=== PATIENT | male | born 1940 | race Two or more races ===

== ENCOUNTER 2017-06-28 11:01 | Inpatient (IN) | payer MEDICARE ==
[~2017-06-28] VITALS: Ht 182.9 cm; Wt 59.0 kg
[2017-06-28 14:37] LABS: BASOPHILS % (AUTO) 0.6 % (0.0-2.0); EOSINOPHILS % (AUTO) 1.8 % (0.0-3.0); HEMATOCRIT 37.9 % (42.0-52.0); HEMOGLOBIN 12.1 G/DL (14.2-18.0); LYMPHOCYTES % (AUTO) 8.7 % (20.0-45.0); MEAN CORPUSCULAR VOLUME 89 FL (80-99); MONOCYTES % (AUTO) 6.7 % (1.0-10.0); NEUTROPHILS % (AUTO) 82.3 % (45.0-75.0); PLATELET COUNT 278 K/UL (150-450); RED BLOOD COUNT 4.28 M/UL (4.70-6.10); RED CELL DISTRIBUTION WIDTH 12.7 % (11.6-14.8); WHITE BLOOD COUNT 8.7 K/UL (4.8-10.8)
[2017-06-28 15:07] LABS: ALANINE AMINOTRANSFERASE 25 U/L (12-78); ALBUMIN 2.4 G/DL (3.4-5.0); ALBUMIN/GLOBULIN RATIO 0.6 (1.0-2.7); ALKALINE PHOSPHATASE 69 U/L (46-116); ANION GAP 8 mmol/L (5-15); ASPARTATE AMINO TRANSFERASE 16 U/L (15-37); BILIRUBIN,TOTAL 0.4 MG/DL (0.2-1.0); BLOOD UREA NITROGEN 45 mg/dL (7-18); CARBON DIOXIDE 28 MMOL/L (21-32); CHLORIDE 108 MMOL/L (98-107); CREATININE 1.5 MG/DL (0.55-1.30); POTASSIUM 4.4 MMOL/L (3.5-5.1); SODIUM 144 MMOL/L (136-145)
[2017-06-28 18:36] VITALS: BP 124/86
[2017-06-28] MEDS: Heparin 5000 units/ml inj SUBQ SCH (21:00)
[2017-06-28 21:42] LABS: APPEARANCE,URINE CLEAR; BILIRUBIN, URINE 1+ (NEGATIVE); COLOR,URINE YELLOW; GLUCOSE, URINE (UA) NEGATIVE (NEGATIVE); KETONES,URINE NEGATIVE (NEGATIVE); LEUKOCYTE ESTERASE ,URINE 1+ (NEGATIVE); NITRITE,URINE NEGATIVE (NEGATIVE); PH,URINE 5 (4.5-8.0); PROTEIN,URINE 3+ (NEGATIVE); UROBILINOGEN,URINE 1 MG/DL (0.0-1.0)
[2017-06-29] VITALS (15 sets, daily range): BP systolic 68–148; BP diastolic 34–99
[2017-06-29] MEDS: Heparin 5000 units/ml inj SUBQ SCH (09:36)
--- NOTE | 2017-06-29 10:33 | Diagnostic Imaging Report ---
Indication: Cough Comparison: None A single view chest radiograph was obtained. Findings: Ill-defined basilar infiltrates are demonstrated bilaterally. Heart size is normal. Pulmonary vascularity is within normal limits. No definite pleural effusions are identified. No pneumothorax identified. Bones are osteopenic. IMPRESSION: Bilateral lower lobe infiltrates. Consider aspiration.
[2017-06-29] MEDS ORDERED: Sodium Bicarbonate 50ml Carp ONE (10:54)
[2017-06-29] MEDS ORDERED: Sodium Bicarbonate 50ml Carp IV ONE (11:00)
[2017-06-29 11:28] LABS: HEMATOCRIT 38.7 % (42.0-52.0); HEMOGLOBIN 12.4 G/DL (14.2-18.0); MEAN CORPUSCULAR VOLUME 89 FL (80-99); PLATELET COUNT 282 K/UL (150-450); RED BLOOD COUNT 4.36 M/UL (4.70-6.10); RED CELL DISTRIBUTION WIDTH 12.6 % (11.6-14.8); WHITE BLOOD COUNT 8.8 K/UL (4.8-10.8)
[2017-06-29] MEDS ORDERED: Ipratropium 0.02% Inh Soln 2.5ml UD HHN PRN ×2 (11:30→14:30)
[2017-06-29 11:43] LABS: INR 1.2 (0.9-1.1)
[2017-06-29] MEDS ORDERED: Succinylcholine 20mg/ml 10ml vial IV ONE (11:45)
[2017-06-29] MEDS ORDERED: Etomidate 40mg/20ml Inj IV SCH (11:45)
[2017-06-29 11:50] LABS: ANION GAP 25 mmol/L (5-15); BLOOD UREA NITROGEN 65 mg/dL (7-18); CALCIUM 7.9 MG/DL (8.5-10.1); CARBON DIOXIDE 17 MMOL/L (21-32); CHLORIDE 106 MMOL/L (98-107); CREATININE 3.8 MG/DL (0.55-1.30); POTASSIUM 3.9 MMOL/L (3.5-5.1); SODIUM 148 MMOL/L (136-145)
[2017-06-29] MEDS ORDERED: Piperacillin/Tazobactam 3.375 GM in NS 110 ML IVPB SCH ×3 (12:00→15:00)
--- NOTE | 2017-06-29 12:14 | General Progress Note ---
Progress Note Progress Note Full consult to follow. Called to see patient who is septic. Was here with who is currently admitted. Has had diarrhea for a few days now. labs abnormal. possible ischemic colitis? when seen in ICU patient hypotensive, tachycardic, tachypnic and not doing well. very concerning. he is mentating okay but states he is tired. he is on bipap and though saturations okay he is using accessory muscles and progressing. -urgent central venous catheter inserted at bedside for fluids, meds, pressors. -urgent intubation performed at beside -ng tube placed and noted coffee ground residual. -recommend GI consult to evaluate for gi bleed -resuscitation with fluids, -wean pressors -wean vent when ready. abg in 1hr -Eugenio Livingston June 29, 2017 12:14
--- NOTE | 2017-06-29 12:51 | Diagnostic Imaging Report ---
Indication: Tube placement Comparison: Earlier today A single view chest radiograph was obtained. Findings: Endotracheal tube is 3 cm above the luciano in good position. Left subclavian line tip is at the junction of SVC and right atrium in good position. There is no pneumothorax. Nasogastric tube proximal port visualized within the stomach lumen. The tip is below the [id number] somewhere in the stomach. Basilar infiltrates again noted. Heart size is stable and normal. IMPRESSION: Tubes and lines satisfactory. No pneumothorax. Basilar infiltrates
[2017-06-29] MEDS ORDERED: Sodium Bicarbonate 100 ML in D5W 1000ml 1,000 ML IV SCH ×5 (13:00→15:00)
[2017-06-29] MEDS ORDERED: Vancomycin 1 GM in D5W 275 ML IVPB ONE (14:00)
[2017-06-29] MEDS ORDERED: Vancomycin 1gm/D5W 275ml IVPB ONE ×2 (14:00)
--- NOTE | 2017-06-29 14:29 | Diagnostic Imaging Report ---
Indication: NG tube placement Comparison: None Single view of the abdomen obtained Findings: NG tube is projected over the left mid abdomen. This is well situated in the stomach. Some distended small and large bowel noted. Osteoporosis demonstrated. Calcification of the iliac arteries and aorta noted. IMPRESSION: NG tube in good position
[2017-06-29 16:00] LABS: HEMATOCRIT 34.9 % (42.0-52.0); HEMOGLOBIN 11.3 G/DL (14.2-18.0); MEAN CORPUSCULAR VOLUME 87 FL (80-99); PLATELET COUNT 214 K/UL (150-450); RED BLOOD COUNT 3.99 M/UL (4.70-6.10); RED CELL DISTRIBUTION WIDTH 12.4 % (11.6-14.8); WHITE BLOOD COUNT 10.3 K/UL (4.8-10.8)
[2017-06-29] MEDS ORDERED: Azithromycin 500mg in D5W 275 ML IV SCH (16:00)
[2017-06-29 16:01] LABS: LYMPHOCYTES % (AUTO) 3.3 % (20.0-45.0); MONOCYTES % (AUTO) 3.5 % (1.0-10.0); NEUTROPHILS % (AUTO) 92.1 % (45.0-75.0)
[2017-06-29] MEDS ORDERED: NovoLOG Insulin Flexpen SUBQ SCH (16:30)
[2017-06-29 17:04] LABS: ANION GAP 17 mmol/L (5-15); BLOOD UREA NITROGEN 69 mg/dL (7-18); CALCIUM 6.9 MG/DL (8.5-10.1); CARBON DIOXIDE 23 MMOL/L (21-32); CHLORIDE 103 MMOL/L (98-107); CREATINE KINASE 3261 U/L (26-308); POTASSIUM 3.9 MMOL/L (3.5-5.1); SODIUM 143 MMOL/L (136-145)
--- NOTE | 2017-06-29 17:17 | Diagnostic Imaging Report ---
EXAM: US Abdomen Complete CLINICAL HISTORY: Abdominal pain. TECHNIQUE: Real-time ultrasound of the abdomen (complete) with image documentation. COMPARISON: No relevant prior studies available. FINDINGS: Liver: Unremarkable as visualized. Gallbladder: Gallbladder sludge. No definite shadowing cholelithiasis. Common bile duct: Obscured. Pancreas: Obscured. Kidneys: No hydronephrosis. Right kidney 9.1 cm. Left kidney 10.4 cm. Spleen: Unremarkable as visualized. Aorta: Obscured. Inferior vena cava: Unremarkable as visualized. Free fluid: Small ascites. IMPRESSION: 1. No hydronephrosis. 2. Gallbladder sludge. No definite shadowing cholelithiasis. 3. Small ascites.
--- NOTE | 2017-06-29 18:16 | Diagnostic Imaging Report ---
EXAM: XR Abdomen, 2 Views CLINICAL HISTORY: SOB TECHNIQUE: Frontal view of the abdomen/pelvis with upright view of the abdomen. COMPARISON: No relevant prior studies available. FINDINGS: Intraperitoneal space: Possible pneumoperitoneum, versus artifact. Gastrointestinal tract: Prominent small bowel concerning for SBO. Possible small bowel pneumatosis, cannot exclude bowel ischemia. Bones/joints: Unremarkable. Tubes, lines and devices: NG tube in the stomach. IMPRESSION: 1. Prominent small bowel concerning for SBO. Possible small bowel pneumatosis, cannot exclude bowel ischemia. 2. Possible pneumoperitoneum, versus artifact. 3. NG tube in the stomach. [employer] 06/29/17 18:19 Verify Receipt Verified receipt with Ani in ICU on 06/29 18:18 (-07:00)
--- NOTE | 2017-06-29 18:53 | Pulmonolgy Critical Care Note ---
Critical Care - Asmt/Plan Assessment/Plan: Pulmonary Consultation Consulted on patient noted to have worsening metabolic acidosis, felt to be septic from either a Pulmonary or GI source, patient hypotensive, in Respiratory Distress, ABG revealed PH 7. Patient had apparently had diarrhea for a few days felt to possibly ischemic colitis, patient previously on BiPAP. Urgent intubation performed at beside, central line placed, ng tube placed, Ly catheter placed, coffee ground residual noted on NGT Placed on AC 24, 650, P5, adjust sats 92-98 PE: Sedated on the Ventilator, ill appearing HEENT: NCAT, dry mm Chest: CTAB Heart: HS1, HS2 RRR Abdomen: Mildly distended, soft Extremities: Reduced perfusion, no edema, reduced skin turgor HOUSE FELLOW: Sedated, no focal signs Investigations: Labs noted CXR: Bibasal infiltrates, ETT/NGT/Line well positioned EKG: ST Impression: Possible Pneumomia Possible small bowel obstruction vs ischemic colitis Upper GI bleed Metabolic acidosis with inadequate Pulmonary compensation prior to intubation Plan: Patient intubated Fentanyl gtt RASS -2 AC 26, Vt 650, P5, titrate FIO2 Repeat ABG IV Zosyn, Vanco, Doxycycline Atrovent treatments DVT prophyllaxis IV Protonix IV fluids/HCO3 per renal Time of note does not reflect time patient seen ICU time 75 minutes, 42 minutes care co-ordination Case d/w RN/PMD Surgery following Respiratory: adjust tidal volume, monitor respiratory rate, adjust FIO2, CXR, ABG Critical Care - Objective Last 24 Hour Vital Signs Date Time Temp Pulse Resp B/P (MAP) Pulse Ox O2 Delivery O2 Flow Rate FiO2 06/29/17 17:18 100 06/29/17 17:10 133 33 50 06/29/17 17:00 105 24 148/90 99 Mechanical Ventilator 50 06/29/17 16:30 126 24 140/90 99 Mechanical Ventilator 50 06/29/17 16:25 92/46 06/29/17 16:00 98.8 129 32 136/99 99 Mechanical Ventilator 50 98.8 06/29/17 15:30 130 32 102/72 99 Mechanical Ventilator 50 06/29/17 15:00 133 31 115/80 99 Mechanical Ventilator 50 06/29/17 14:40 131 31 50 06/29/17 14:30 131 31 110/95 99 Mechanical Ventilator 50 06/29/17 14:05 32 5/11/18 14:00 130 31 114/98 99 Mechanical Ventilator 100 06/29/17 14:00 100 06/29/17 13:30 133 31 83/40 99 Mechanical Ventilator 100 06/29/17 13:10 131 32 100 06/29/17 13:00 129 32 86/68 99 Mechanical Ventilator 100 06/29/17 12:30 129 32 86/68 99 Mechanical Ventilator 100 06/29/17 12:22 68/34 06/29/17 12:00 100 06/29/17 12:00 118 25 68/34 99 Mechanical Ventilator 100 06/29/17 12:00 116 30 100 06/29/17 11:00 100 06/29/17 11:00 97.8 137 39 128/97 85 Bi-pap 100 97.8 06/29/17 08:00 98.1 101 20 110/72 95 Room Air 98.1 06/29/17 04:00 97.9 113 20 97/52 95 Room Air 97.9 06/29/17 00:00 98.0 118 20 119/63 96 98.0 06/28/17 18:36 97.3 98 18 124/86 98 Room Air 97.3 Accucheck: 108 Critical Care - Subjective ROS Limited/Unobtainable: Yes Condition: critical IV Access: central EKG Rhythm: Sinus Rhythm FI02: 100 Vent Support Breath Rate: 24 Vent Support Mode: AC Vent Tidal Volume: 650 Sputum Amount: Small PEEP: 5.0 PIP: 23 I&O: Intake and Output 06/28/17 06/29/17 19:00 07:00 Intake Total 160 ml 675 ml Balance 160 ml 675 ml Intake Oral 160 ml IV Total 675 ml # Voids 3 4 # Bowel Movements 3 ET-Tube: 7.5 ET Position: 22 Vik Cheng M.D. June 29, 2017 18:53
[2017-06-29] MEDS ORDERED: Tubing IV Secondary IV ONE (19:23)
--- NOTE | 2017-06-29 20:01 | History and Physical Report ---
DATE OF ADMISSION: 06/28/2017 CHIEF COMPLAINT: Diarrhea. HISTORY OF PRESENT ILLNESS: The patient is a 77-year-old male. He has no past medical history. He has been here at the hospital with his , who is admitted with cellulitis. He has been having poor p.o. intake for the last three days as well as multiple episodes of diarrhea. According to the patient and the patient's , he has no past medical history although he does note a 20 to 30-pound weight loss over the last several years. There are no reports of any fevers or chills. No chest pain. No shortness of breath. PAST MEDICAL HISTORY: None. PAST SURGICAL HISTORY: None. CURRENT MEDICATIONS: None. FAMILY HISTORY: None. SOCIAL HISTORY: Negative for alcohol or drugs. REVIEW OF SYSTEMS: GENERAL: No fever or chills. HEENT: No headaches or visual changes. CARDIOPULMONARY: No chest pain or shortness of breath. GASTROINTESTINAL: Positive abdominal pain. Positive diarrhea. No nausea. No vomiting. No melena. No bright red blood per rectum. No hematemesis. GENITOURINARY: No urgency or frequency. MUSCULOSKELETAL: No joint pain or swelling. NEUROLOGIC: No evidence of seizures. PHYSICAL EXAMINATION: VITAL SIGNS: Temperature 98 degrees, blood pressure 124/86, pulse 72, and respirations 20. GENERAL: The patient is well developed and in no apparent distress. He is thin and frail. NECK: Supple. HEART: Regular rate and rhythm. LUNGS: Clear. ABDOMEN: Soft, nontender, and nondistended. EXTREMITIES: Without clubbing, cyanosis, or edema. LABORATORY AND DIAGNOSTIC DATA: Laboratories are pending. ASSESSMENT: This is a pleasant male, who is admitted with complaints of diarrhea. He has been in the hospital. I am concerned about possible Clostridium difficile infection. 1. Diarrhea. 2. Dehydration. 3. Azotemia. 4. Failure to thrive and weight loss. PLAN: 1. Follow up C. difficile. 2. IV hydration. 3. Further plan of care will be determined at the review of pending laboratories. We will obtain a GI and Infectious Disease consultations also. Zeke Fierro M.D. DR: BURT JOB#: [id number] CC:
[2017-06-29] MEDS ORDERED: Heparin 5000 units/ml inj SUBQ SCH (21:00)
[2017-06-29] MEDS ORDERED: Doxycycline Hyclate 100 MG in D5W 110 ML IV SCH (21:00)
[2017-06-29] MEDS ORDERED: Doxycycline Hyclate 100 MG in D5W 110 ML IVPB SCH (21:00)
--- NOTE | 2017-06-29 21:01 | Consultation ---
DATE OF CONSULTATION: 06/29/2017 INFECTIOUS DISEASES CONSULTATION CONSULTING PHYSICIAN: July Elder M.D. REFERRING PHYSICIAN: Zeke Fierro M.D. REASON FOR CONSULTATION: Shock. HISTORY OF PRESENTING ILLNESS: This is a 77-year-old gentleman with unknown past medical history, who presents with diarrhea. He started having respiratory distress and was then transferred to the ICU. There is a concern for pneumonia and an Infectious Diseases consultation has been obtained for antibiotics. PAST MEDICAL HISTORY: Unknown. MEDICATIONS: As an inpatient, he was on subcutaneous heparin. He has been started on norepinephrine and sodium bicarbonate. ALLERGIES: No known drug allergies. SOCIAL HISTORY: Unknown. FAMILY HISTORY: Unknown. REVIEW OF SYSTEMS: Unable to obtain currently. PHYSICAL EXAMINATION: VITAL SIGNS: Temperature of 98.1, T-max of 98.1, pulse of 101, respiratory rate 20, blood pressure 110/72, and O2 saturation of 95%. HEENT: Pupils equally reactive to light and accommodation. Mouth appears clean without thrush. NECK: Supple. No adenopathy. No JVD. CARDIOVASCULAR: Regular rate and rhythm. No murmurs. LUNGS: Clear to auscultation bilaterally. No crackles. No wheezes. ABDOMEN: Soft and nontender. No organomegaly. EXTREMITIES: No cyanosis, no clubbing, and no edema. LABORATORY DATA: White count 8.7, hemoglobin 12.1, hematocrit 37.9, MCV 89, and platelet count of 278,000 with neutrophils of 82%. Sodium 144, potassium 4.4, chloride 108, bicarb 28, BUN 45, creatinine 1.5, and glucose 126. Calcium 8. Total bilirubin 0.4. AST 16, ALT 25, and alkaline phosphatase 69. Total protein 6.1. Albumin 2.4. UA is showing 2 to 4 white cells. Chest x-ray is showing bilateral lower lobe infiltrate. ASSESSMENT: This is a 77-year-old gentleman with unknown past medical history, who came in with diarrhea and now possibly has, 1. Aspiration pneumonia. 2. Respiratory failure. PLAN: 1. We will start the patient on vancomycin, Zosyn, and Flagyl. 2. We will order blood cultures, urine cultures, sputum cultures, stool for C. difficile, and stool cultures. 3. We will follow up cultures and adjust antibiotics accordingly. I would like to thank, Dr. Fierro, for this consultation. July Elder M.D. DR: ELSA JOB#: [id number] CC: Zeke Fierro M.D.
--- NOTE | 2017-06-29 22:52 | Operative Note - PDOC ---
Operative Note Operative Note Date of Operation/Procedure: June 29, 2017 Pre-op Diagnosis: septic shock Procedure: 1. emergency intubation 2. left subclavian central venous catheter insertion 3. Orogastric tube insertion Post-op Diagnosis: same as pre-op Surgeon: jose Anesthesia: other - local for line placement; RSI for intubation Specimen: none Complications: none Condition: unstable Estimated Blood Loss: minimal Drains: none Implant(s) used?: Yes - triple lumen catheter, ng tube, 7.5f ET tube Indications for Procedure 77M with recent history of diarrhea for a few days was visiting his when noted to be feeling unwell. Was admitted to ICU and progressing into shock. hypotensive, tachycardic, elevated trop, respiratory distress, acidosis. Emergency intubation recommended as well as central venous catheter insertion. Description of Procedure Patient made comfortable at bedside. When seen he is mentating well despite being hypotensive and tachycardic in progressive respiratory distress. patient stated he was tired and discussed intubation and line placement with him. left chest wall was prepped and draped in standard surgical fashion. anatomic landmarks were identified. local was infiltrated. finder needle used to cannulate left subclavian vein on second pass. guide wire placed over needle and needle removed. small skin incision made around wire. dilator used. triple lumen central venous catheter placed over wire and wire discarded once removed. all three ports flushed and aspirated without difficulty. line sutured in place and dressings applied. following this, once good venous line was available, patient was given IV fluids and made ready for emergent intubation. 10 etomidate and 50 succinylcholine was given while patient was being preoxygenaged. oropharynx was suctioned and 4 mac blade was used to visualize vocal cords for ET tube insertion. 7.5f tube inserted without complication. good capnography color change noted. bilateral breath sounds noted with good chest rise. following this an og tube was inserted. Eugenio Barrios June 29, 2017 22:51
--- NOTE | 2017-06-29 23:05 | Consultation ---
History of Present Illness General Date patient seen: June 29, 2017 Time patient seen: 11:45 Reason for Consultation: septic shock Present Illness HPI 77M currently visiting his who is hospitalized was noted to be feeling ill and deteriorating over the past few days while visiting his . Stated that he has been having diarrhea for a few days and not doing well. was advised to be evaluated and was noted to be hypotensive and tachycardic. Admitted to ICU for care and management. initial labs noted and concerning. Surgery called to evaluate. Patient was seen at bedside in ICU where he was in moderate distress but still mentating appropriately. stated that he has been having diarrhea and feeling well. diarrhea stated to be dark loose stools. no gross blood as he noted. no clots that he noted. denies nausea or emesis. denies pain. states he is very tired and feels weak. he is noted to be using accessory muscles for respirations. Allergies: Coded Allergies: No Known Allergies (Unverified , 06/28/17) Patient History Limited by: medical condition History Provided By: Patient, Medical Record, PMD Healthcare decision maker N Resuscitation status Full Code Advanced Directive on File No Past Medical/Surgical History Past Medical/Surgical History: (1) Septic shock (2) Diarrhea Review of Systems Constitutional: Reports: malaise, weakness Gastrointestinal: Reports: diarrhea All Other Systems: negative except mentioned in HPI Physical Exam General Appearance: moderate distress, thin Lines, tubes and drains: peripheral HEENT: atraumatic, anicteric Neck: supple Respiratory/Chest: decreased breath sounds, accessory muscle use Cardiovascular/Chest: tachycardia, other - difficult to palpate peripheral pulses Abdomen: non tender, soft, no organomegaly, no mass Extremities: slow capillary refill Skin Exam: no diaphoresis Neurologic: alert, responsive Last 24 Hour Vital Signs Date Time Temp Pulse Resp B/P (MAP) Pulse Ox O2 Delivery O2 Flow Rate FiO2 06/29/17 17:18 100 06/29/17 17:10 133 33 50 06/29/17 17:00 28 06/29/17 17:00 148/90 06/29/17 17:00 105 24 148/90 99 Mechanical Ventilator 50 06/29/17 16:30 126 24 140/90 99 Mechanical Ventilator 50 06/29/17 16:25 92/46 06/29/17 16:00 98.8 129 32 136/99 99 Mechanical Ventilator 50 98.8 06/29/17 16:00 31 06/29/17 15:30 130 32 102/72 99 Mechanical Ventilator 50 06/29/17 15:00 133 31 115/80 99 Mechanical Ventilator 50 06/29/17 15:00 30 06/29/17 14:40 131 31 50 06/29/17 14:30 131 31 110/95 99 Mechanical Ventilator 50 06/29/17 14:05 32 06/29/17 14:00 130 31 114/98 99 Mechanical Ventilator 100 06/29/17 14:00 100 06/29/17 13:30 133 31 83/40 99 Mechanical Ventilator 100 06/29/17 13:10 131 32 100 06/29/17 13:00 129 32 86/68 99 Mechanical Ventilator 100 06/29/17 12:30 129 32 86/68 99 Mechanical Ventilator 100 06/29/17 12:22 68/34 06/29/17 12:00 100 06/29/17 12:00 118 25 68/34 99 Mechanical Ventilator 100 06/29/17 12:00 116 30 100 06/29/17 11:00 100 06/29/17 11:00 97.8 137 39 128/97 85 Bi-pap 100 97.8 06/29/17 08:00 98.1 101 20 110/72 95 Room Air 98.1 06/29/17 04:00 97.9 113 20 97/52 95 Room Air 97.9 06/29/17 00:00 98.0 118 20 119/63 96 98.0 Intake and Output 06/28/17 06/29/17 19:00 07:00 Intake Total 160 ml 675 ml Balance 160 ml 675 ml Intake Oral 160 ml IV Total 675 ml # Voids 3 4 # Bowel Movements 3 Laboratory Tests Test 06/29/17 10:10 06/29/17 10:30 06/29/17 11:11 06/29/17 11:30 Arterial Blood pH 7.006 (7.350-7.450) 7.190 (7.350-7.450) 7.393 (7.350-7.450) Arterial Blood Partial Pressure CO2 47.9 mmHg (35.0-45.0) H 17.0 mmHg (35.0-45.0) *L 18.0 mmHg (35.0-45.0) *L Arterial Blood Partial Pressure O2 32.4 mmHg (75.0-100.0) 143.5 mmHg (75.0-100.0) H 0.0 mmHg (75.0-100.0) Arterial Blood HCO3 11.7 mmol/L (22.0-26.0) L 6.3 mmol/L (22.0-26.0) L 10.7 mmol/L (22.0-26.0) L Arterial Blood Oxygen Saturation 35.5 % (92.0-98.0) L 97.0 % (92.0-98.0) 98.4 % (92.0-98.0) H Arterial Blood Base Excess -19.4 -19.5 -11.6 Severiano Test Positive Positive Positive White Blood Count 8.8 K/UL (4.8-10.8) Red Blood Count 4.36 M/UL (4.70-6.10) L Hemoglobin 12.4 G/DL (14.2-18.0) L Hematocrit 38.7 % (42.0-52.0) L Mean Corpuscular Volume 89 FL (80-99) Mean Corpuscular Hemoglobin 28.3 PG (27.0-31.0) Mean Corpuscular Hemoglobin Concent 31.9 G/DL (32.0-36.0) L Red Cell Distribution Width 12.6 % (11.6-14.8) Platelet Count 282 K/UL (150-450) Mean Platelet Volume 6.8 FL (6.5-10.1) Neutrophils (%) (Auto) % (45.0-75.0) Lymphocytes (%) (Auto) % (20.0-45.0) Monocytes (%) (Auto) % (1.0-10.0) Eosinophils (%) (Auto) % (0.0-3.0) Basophils (%) (Auto) % (0.0-2.0) Differential Total Cells Counted 100 Neutrophils % (Manual) 56 % (45-75) Lymphocytes % (Manual) 16 % (20-45) L Monocytes % (Manual) 7 % (1-10) Eosinophils % (Manual) 1 % (0-3) Basophils % (Manual) 0 % (0-2) Band Neutrophils 20 % (0-8) H Platelet Estimate Adequate Platelet Morphology Normal Prothrombin Time 12.1 SEC (9.30-11.50) H Prothromb Time International Ratio 1.2 (0.9-1.1) H Activated Partial Thromboplast Time 30 SEC (23-33) Sodium Level 148 MMOL/L (136-145) H Potassium Level 3.9 MMOL/L (3.5-5.1) Chloride Level 106 MMOL/L (98-107) Carbon Dioxide Level 17 MMOL/L (21-32) L Anion Gap 25 mmol/L (5-15) H Blood Urea Nitrogen 65 mg/dL (7-18) H Creatinine 3.8 MG/DL (0.55-1.30) #H Estimat Glomerular Filtration Rate mL/min (>60) Glucose Level 281 MG/DL (74-106) #H Lactic Acid Level 18.40 mmol/L (0.66-2.22) H Calcium Level 7.9 MG/DL (8.5-10.1) L Test 06/29/17 13:50 06/29/17 15:00 06/29/17 16:05 Arterial Blood pH 7.175 (7.350-7.450) Arterial Blood Partial Pressure CO2 39.1 mmHg (35.0-45.0) Arterial Blood Partial Pressure O2 275.6 mmHg (75.0-100.0) H Arterial Blood HCO3 14.1 mmol/L (22.0-26.0) L Arterial Blood Oxygen Saturation 99.2 % (92.0-98.0) H Arterial Blood Base Excess -13.6 Severiano Test Positive White Blood Count 10.3 K/UL (4.8-10.8) Red Blood Count 3.99 M/UL (4.70-6.10) L Hemoglobin 11.3 G/DL (14.2-18.0) L Hematocrit 34.9 % (42.0-52.0) L Mean Corpuscular Volume 87 FL (80-99) Mean Corpuscular Hemoglobin 28.3 PG (27.0-31.0) Mean Corpuscular Hemoglobin Concent 32.3 G/DL (32.0-36.0) Red Cell Distribution Width 12.4 % (11.6-14.8) Platelet Count 214 K/UL (150-450) Mean Platelet Volume 6.6 FL (6.5-10.1) Neutrophils (%) (Auto) 92.1 % (45.0-75.0) H Lymphocytes (%) (Auto) 3.3 % (20.0-45.0) L Monocytes (%) (Auto) 3.5 % (1.0-10.0) Eosinophils (%) (Auto) 0.0 % (0.0-3.0) Basophils (%) (Auto) 1.0 % (0.0-2.0) Sodium Level 143 MMOL/L (136-145) Potassium Level 3.9 MMOL/L (3.5-5.1) Chloride Level 103 MMOL/L (98-107) Carbon Dioxide Level 23 MMOL/L (21-32) Anion Gap 17 mmol/L (5-15) H Blood Urea Nitrogen 69 mg/dL (7-18) H Creatinine 4.0 MG/DL (0.55-1.30) H Estimat Glomerular Filtration Rate mL/min (>60) Glucose Level 384 MG/DL (74-106) #H Lactic Acid Level 10.60 mmol/L (0.66-2.22) H Uric Acid 10.6 MG/DL (2.6-7.2) H Calcium Level 6.9 MG/DL (8.5-10.1) L Total Creatine Kinase 3261 U/L (26-308) H Troponin I 1.238 ng/mL (0.000-0.056) Height (Feet): 6 Weight (Pounds): 130 Assessment/Plan Problem List: (1) Septic shock Assessment & Plan: 77M in septic shock. hypotensive, tachycardic, labs as noted, exam with respiratory distress and very uncomfortable. currently etiology of septic shock unknown and needs further work up. given current condition emergently needs central venous catheter for meds including pressors, fluids, and abx. needs to be intubated sam as well given clinical condition. please refer to procedure note. patient was intubated and central venous line placed at bedside. during intubation noted some coffee ground fluid in oropharynx and og tube placed. coffee ground dark fluid aspirated from stomach. KUB and CXR obtained. line and et tube in good place. og tube in good place. small bowel loops somewhat distended. no free air noted. no ptx noted. no large effusion noted. on exam when mentating did not elicit abdominal pain and did not have complaints of abdominal pain. many possible differential for shock. could be related to diarrhea, volume status, sbo, ischemic colitis, perforation, other infection unfortunately prognosis poor and in current states needs significant resuscitation first. he is too unstable for surgery or diagnostic imaging. cont ICU care and management. will follow with serial exams and recommendations. above note late entry for patient being seen a few hours prior. upon return for re-evaluation was informed that patient had . patients condition continued to deteriorate and he became more hypotensive and bradycardic despite maximal efforts. ICD Codes: A41.9 - Sepsis, unspecified organism; R65.21 - Severe sepsis with septic shock SNOMED: [id number] Status: progressing José MiguelEugenio delatorre June 29, 2017 23:05
--- NOTE | 2017-06-29 23:31 | Consultation ---
DATE OF CONSULTATION: 06/29/2017 NEPHROLOGY CONSULTATION CONSULTING PHYSICIAN: Laith Rashid M.D. REFERRING PHYSICIAN: Zeke Fierro M.D. REASON FOR CONSULTATION: Sepsis, acute kidney injury. HISTORY OF PRESENT ILLNESS: The patient is a 77-year-old man, who is in the intensive care unit intubated. I am unable to get any past history at this time. He apparently presented with a diarrhea illness, but subsequently developed respiratory failure, intubated in the intensive care unit. He was seen by Surgery for central line and was placed, intubation, and nasogastric tube and he is having a gastrointestinal bleeding. PAST MEDICAL HISTORY: Unable. REVIEW OF SYSTEMS: Unable. PHYSICAL EXAMINATION: GENERAL: The patient is the intensive care unit, intubated. VITAL SIGNS: Temperature 98.1, pulse 101, respirations 20, blood pressure 110/70 to 168/34, and pulse oximetry 95. HEENT: He is intubated oral mucosa is dry. Sclerae are nonicteric. NECK: No adenopathy. LUNGS: Few rhonchi. HEART: Tachycardic. I hear no murmur. ABDOMEN: Soft. I am unable to feel liver or spleen. EXTREMITIES: No edema. There is muscle wasting. NEUROLOGIC: The patient is partially sedated and moving about in bed. LABORATORY AND DIAGNOSTIC DATA: Pertinent labs on 06/28/2017, BUN 45, creatinine 1.5; on 06/29/2017, BUN 65, creatinine 3.8. Sodium 140, potassium 3.9, chloride 106, CO2 17, anion gap of 25, lactic acid of 18.4, and calcium 7.9. Troponin 0.023. Albumin 2.4. A urinalysis shows 3+ protein, negative glucose, 20 to 30 RBCs, and 2 to 4 red cells. Chest x-ray shows infiltrates. He had a blood gas, pH 7.006, pCO2 47.8, and pO2 of 32.4 earlier. The white count 8.8, hemoglobin 12.4. IMPRESSION: 1. Sepsis and likely septic shock. 2. Likely hypovolemic shock, also secondary to diarrhea. 3. Acute respiratory failure. 4. Pneumonia. 5. Diarrhea. 6. Lactic acidosis, severe. 7. Acute kidney injury, possibly from sepsis and dehydration combined possible component of urinary retention and the Ly was about to be placed. PLAN: The patient will be given large volumes of IV fluids. I will recheck his laboratories. Ly catheter. Broad-spectrum antibiotics. His condition is guarded. Also note his glucose is elevated and we will put him on insulin sliding scale. Rachid Ozuna M.D. DR: MARYELLEN JOB#: [id number] CC:
--- NOTE | 2017-06-30 00:01 | Consultation ---
DATE OF CONSULTATION: 06/29/2017 CARDIOLOGY CONSULTATION CONSULTING PHYSICIAN: Vik Manning M.D. REQUESTING PHYSICIAN: Zeke Fierro M.D. REASON FOR CONSULT: Shock. HISTORY OF PRESENT ILLNESS: This is a 77-year-old male, who has been visiting his , who is not well. She has been hospitalized at this facility for the past week. He has had episodes of diarrhea for a few days and then noted worsening abdominal pain last night prompting hospitalization. He was noted to have significant abnormalities of his laboratory values and subsequently became hypotensive requiring transfer to the intensive care unit. PAST MEDICAL HISTORY: 1. Hypertension. 2. Acute and chronic cardiovascular disease. 3. Chronic kidney disease. 4. Osteoarthritis. 5. Prostatic hypertrophy. ALLERGIES: None. MEDICATIONS: Prior to admission reviewed and reconciled. FAMILY HISTORY: Noncontributory. REVIEW OF SYSTEMS: A 10-point review of systems performed. All pertinent findings noted above, otherwise negative. PHYSICAL EXAMINATION: VITAL SIGNS: Blood pressure 97/52, pulse 115, respiratory rate 20, and afebrile. HEENT: Temporal wasting. Oropharynx clear. Mucous membranes dry. NECK: Supple. LUNGS: Clear. CARDIAC: Regular rhythm. Rapid rate. Normal S1, S2. ABDOMEN: Slightly distended, soft, and diffusely tender. EXTREMITIES: With no edema. There is poor capillary refill. LABORATORY AND DIAGNOSTIC DATA: Chest x-ray reveals bilateral infiltrates. White count is 8.8, hemoglobin 12.4. ABG, 7.00, 48, and 32. Sodium 148, potassium 3.9, bicarbonate 17, BUN 65, and creatinine 3.8. Lactate is 18.4. BUN and creatinine yesterday was 45/1.5. IMPRESSION: 1. Sepsis with shock. 2. Hypovolemia. 3. Acute renal failure secondary to sinus tachycardia. 4. Acute myocardial ischemia. 5. Severe protein-calorie malnutrition. 6. Metabolic acidosis. 7. Lactic acidosis. 8. Critical and guarded. PLAN: 1. BiPAP support. 2. Volume resuscitation. 3. Broad-spectrum antibiotics. 4. Imaging studies of the gastrointestinal tract in progress. 5. No contrast to be given. May need intubation and mechanical ventilation if unable to compensate from acidosis. 6. Bicarb and IV fluid has been added. 7. Stress ulcer and DVT prophylaxis and NPO status at this time. Vik Manning M.D. DR: SEDA JOB#: [id number] CC:
--- NOTE | 2017-06-30 14:21 | Emergency Room Report ---
History of Present Illness General Source: Patient, Medical Record, PMD Present Illness Allergies: Coded Allergies: No Known Allergies (Unverified , 06/28/17) Nursing Documentation-PMH Hx Cardiac Problems: No Hx Cancer: No Hx Gastrointestinal Problems: No Hx Neurological Problems: No Physical Exam Vital Signs Date Time Temp Pulse Resp B/P (MAP) Pulse Ox O2 Delivery O2 Flow Rate FiO2 06/28/17 18:36 97.3 98 18 124/86 98 Room Air 97.3 06/29/17 11:00 100 Procedures Critical Care Time Critical Care Time i. I feel this is a highly complex case requiring extensive working including EKG/Rhythm strip, Xray/CT/US, Blood/urine lab work, repeat exams while in ED, and administration of strong opiates/narcotics for pain control, admission to hospital or close patient follow up. Total time: 30 min bedside evaluation and treatment excludes procedures (EKG). Reason for critical care: Cardiac arrest Possible complications: hypotension, hypertension, [place], shock, arrhythmias, metabolic acidosis, end organ damage, respiratory failure. Interventions: Epinephrine, calcium, bicarbonate, chest compressions, defibrillation Course: Patient became bradycardic and then unresponsive. Initial rhythm asystole. Chest compressions started. Given epinephrine 4, and calcium and bicarbonate. Patient previously intubated with central line earlier today. Patient on max pressors. Patient had one episode of ventricular fibrillation. Shocked 1. Resulting rhythm asystole. Prognosis poor, resuscitative efforts terminated, patient Consultations: nursing staff, EMS, family Performed by: Dr Rudolph Tolerated well condition = j. because of unstable vital signs this patient had a condition that could potentially threaten life or limb. I feel this is a critical patient who required my full attention while patient was considered critical. Total Critical Care Time excluding procedures was greater than 35 minutes Cardioversion Cardioversion: Consent: Emergent Indication: Other - V-FIB Type: Desynchonis Response: Other - asystole Attempts: One Patient Tolerated: Well Complications: None CPR/Code Blue CPR/Code Blue Narrative see code blue sheet for full narrative Medical Decision Making Diagnostic Impression: Primary Impression: Diarrhea Additional Impressions: Septic shock Cardiac arrest ER Course I was called to this CODE BLUE in the ICU. Patient became bradycardic and lost pulses. Chest compressions started. Patient was admitted day prior for diarrhea. Noted to have coffee-ground emesis, hypotensive. Central line and intubated by surgery earlier today and moved ICU. Patient on max pressors. Blood products pending. Patient given epinephrine 4, given calcium and bicarbonate. One round for jugular fibrillation and shocked accordingly. Resulting rhythm asystole. Despite resuscitative efforts prognosis is poor given the patient is already intubated and on max pressors. Resuscitative efforts terminated, patient expires Last Vital Signs Date Time Temp Pulse Resp B/P (MAP) Pulse Ox O2 Delivery O2 Flow Rate FiO2 06/29/17 17:18 100 06/29/17 17:10 133 33 06/29/17 17:00 148/90 06/29/17 17:00 99 Mechanical Ventilator 06/29/17 16:00 98.8 98.8 Status: worsened Disposition: Condition: Referrals: ANA OREILLY (PCP) Sanjiv Rudolph MD June 30, 2017 14:21
--- NOTE | 2017-06-30 23:45 | Consultation ---
DATE OF CONSULTATION: 06/29/2017 GASTROENTEROLOGY CONSULTATION CONSULTING PHYSICIAN: Jay Wagner M.D. CHIEF COMPLAINT: I was asked to see this patient by Dr. Zeke Fierro for evaluation of gastrointestinal bleeding. HISTORY OF PRESENT ILLNESS: The patient is an unfortunate 77-year-old white man, who I was asked to see for gastrointestinal bleeding . The patient was intubated at the time of my visit and no family was at bedside. Apparently, the patient came into the hospital due to poor oral intake for a few days and multiple episodes of diarrhea. Apparently, there was no significant past medical history, but there was a 20 to 30-pound weight loss over the past several years. Shortly after admission, the patient was found to be in respiratory distress and hypotension requiring intubation and mechanical ventilation. At the time of my arrival, the patient was in shock, on high-dose maximum pressor with hypotension. In addition, his nasogastric tube was draining out dark red material, which was felt to be bleeding, although his blood level had not dropped significantly. A KUB was ordered, which subsequently showed some distended bowel possibly with pneumatosis, however, the patient shortly after my visit. PAST MEDICAL HISTORY: Reportedly otherwise unremarkable. PAST SURGICAL HISTORY: Reportedly otherwise negative. MEDICATIONS: See the chart list for details. FAMILY HISTORY: Not available. SOCIAL HISTORY: The patient reportedly does not smoke or drink. REVIEW OF SYSTEMS: Unable to obtain. PHYSICAL EXAMINATION: GENERAL: At the time of my visit, the patient was on the ventilator on maximum pressors and unresponsive. HEENT: Showed nasogastric tube and the tracheal tube. The former was draining dark red material. CHEST: Revealed coarse breath sounds. CARDIOVASCULAR: Revealed regular rhythm with a tachycardic heart rate. ABDOMEN: Soft, but was somewhat distended superiorly, percussion noted. EXTREMITIES: Revealed trace edema. LABORATORY DATA: Laboratory data were noted. ASSESSMENT: This patient presented with sepsis, shock, hypotension, on maximum pressors, and his condition was grave. Poor prognosis. Significant lactic acidosis. . At the time of this dictation, the patient had already and this was an expected result. RECOMMENDATIONS: At the time of the visit, the recommendation was to perform a stat KUB to evaluate the small bowel and throughout . The degree of ileus and perhaps secondary to his sepsis and evaluation at this point was terminated since the patient has . Jay Wagner M.D. DR: ANNMARIE JOB#: [id number] CC:
--- NOTE | 2017-07-02 09:36 | Discharge Summary ---
Discharge Summary Hospital Course Date of Admission June 28, 2017 at 11:36 Date of Discharge June 29, 2017 at 19:24 Admitting Diagnosis HPI Terry Sharma is a 77 year old male who was admitted on June 28, 2017 at 11: 36 for Diarrhea Hospital Course summary #[id number] Discharge Discharge Disposition Patient Discharge Instructions Discharge Instructions Special Instructions I have been assigned to complete a D/C Summary on this account. I was not involved in the patient management Azucena Molina NP July 02, 2017 09:36
--- NOTE | 2017-07-02 18:00 | Discharge Summary 2 SIG ---
SUMMARY DATE OF ADMISSION: 06/28/2017 DATE OF DISCHARGE: 06/29/2017 REASON FOR ADMISSION: 77-year-old male, was visiting his who was hospitalized for cellulitis. The patient reported generalized weakness, poor oral intake for the last three days as well as multiple episodes of diarrhea. According to the patient and his , he had no past medical history, although he reported 20-30 pound weight loss over the last several years. No fevers. No chills. No chest pain. No shortness of breath. Urinalysis revealed no evidence of urinary tract infection. The patient had no leukocytosis. Hemoglobin 12.1, hematocrit 37.9, neutrophils 82.3. Stable electrolytes. BUN 45, creatinine 1.5. Glucose 126. Troponin negative. TSH within normal limits. Albumin 2.4. The patient was admitted with diagnosis of diarrhea, dehydration, azotemia, failure to thrive, and weight loss. CONSULTANTS: 1. Cardiology, Dr. Manning. 2. Gastrointestinal specialist, Dr. Wagner. 3. General surgeon, Dr. Barrios. 4. Tire Repair Mechanic, Dr. Ozuna. 5. ID specialist, Dr. Elder. 6. Sail Lay Out Worker, Dr. Cheng [facility] COURSE: The patient initially admitted to Medical/Surgical floor. The patient was started on generous IV hydration and empiric antibiotics. Stool for C. difficile was ordered. DVT prophylaxis provided. Next day, the patient noted to be tachycardic and hypotensive. The patient initially placed on 100% nonrebreathing mask and then ABG revealed severe metabolic acidosis. The patient was switched to BiPAP with FiO2 of 100%. However, at the time when the surgeon seen the patient, the patient demonstrated increased work of breathing, using accessary muscles, and stated that he was very tired and feeling weak. He was severely hypotensive. Given current urgency with respiratory distress and severe hypotension, central venous catheter for pressors and an emergent oral intubation was done by surgeon. During intubation noted coffee-ground fluid in the oropharynx. Oropharyngeal tube was placed and coffee-ground dark fluid was aspirated from the stomach. Chest x-ray and KUB confirmed placement of ET-tube and orogastric tube. No pneumothorax was noted. No large pleural effusion. The patient was started on pressor for hemodynamic support. The patient was on Levophed. Sail Lay Out Worker closely followed. Ventilator support provided. Pulmonary toilet provided as needed. The patient was started on a fentanyl drip. ABG were clsoely followed up, and AC rate was increased. Per driver's license reviewing officer, the patient had an acute myocardial ischemia. He recommended to continue volume resuscitation, broad-spectrum antibiotics and pressor support. Intravenous fluids provided with bicarbonate. DVT and GI prophylaxis provided. Laboratory workup next day revealed worsening renal failure with BUN 65, creatinine 2.8, glucose 281, lactic acid 18.4. Nephrology and cardiology closely followed. Tire Repair Mechanic seen the patient and stated that acute kidney injury was likely from sepsis and dehydration combined. He concurred with the treatment of large volumes of the IV fluids and broad-spectrum antibiotics. Renal ultrasound revealed no hydronephrosis. Gallbladder sludge. No definite shadowing cholelithiasis. Small ascites. In addition, the patient was started on sliding scale of insulin due to elevated glucose. Hemoglobin A1c 5.4. Followup chest x-ray revealed bilateral lower lobe infiltrates, likely aspiration. Infectious Disease doctor seen and evaluated the patient. Antibiotic regimen provided as per Infectious Disease specialist recommendations. Followup abdominal x-ray revealed prominent small bowel concerning for small bowel obstruction. Possible small bowel pneumatosis, could not exclude bowel ischemia, possible pneumoperitoneum versus artifact. Labs were repeated later at 1605 hours and showed further worsening of renal failure with a creatinine 4.0, glucose 384, no leukocytosis. Hemoglobin 11.3, hematocrit 34.9. Repeated lactic acid 10.6 . Troponin 1.238 , CK of 3261. Blood culture preliminary negative. All consultants agreed that the patient condition was guarded. The patient's condition was rapidly deteriorating. The patient with evidence of dark red emesis from orogastric tube: 600 mL of dark coffee-ground emesis was noted. One unit of packed red blood cells was ordered. Caroline Sanchez was called at 1744 hours on 06/29/2017, when the patient initially was bradycardic and then became pulseless. Chest compressions were started. The patient was given epinephrine x4, calcium bicarbonate one round. The patient was continued with the resuscitation as per ACLS protocol. Resultant rhythm showed asystole. Prognosis was poor , given the patient was already intubated and on maximum pressors. Subsequently resuscitative efforts were terminated. The patient was pronounced at 1718 hours on 06/29/2017. Cause of : cardiopulmonary arrest. FINAL DIAGNOSES: 1. Septic shock with sepsis. 2. Status post cardiopulmonary arrest. 3. Acute hypoxemic respiratory failure requiring intubation. 4. Diarrhea. 5. Dehydration. 6. Acute myocardial ischemia. 7. Possible small bowel obstruction versus ischemic colitis. 8. Upper gastrointestinal bleeding. 9. Significant lactic acidosis. 10. Acute renal failure ( due to sepsis and dehydration) 11. Severe protein-calorie malnutrition. 12. Aspiration pneumonia. 13. Weight loss. 14. Elevated troponin Zeke Fierro M.D. I have been assigned to dictate discharge summary on this account and I was not involved in the patient's management. Azucena WallaceU[facility] 1Raphael NYaneliPYaneli DR: LENNY JOB#: [id number] CC: [id number]
== END 2017-06-29 19:24 | disposition expired | DRG 871 ==
LOC: 4E 11:36 → ICU 06-29 10:58
PROC: 05H633Z Insertion of Infusion Device into Left Subclavian Vein, Percutaneous Approach (ICD-10-PCS; principal; 2017-06-29)
PROC: 0BH18EZ Insertion of Endotracheal Airway into Trachea, Via Natural or Artificial Opening Endoscopic (ICD-10-PCS; principal; 2017-06-29)
PROC: 5A1935Z Respiratory Ventilation, Less than 24 Consecutive Hours (ICD-10-PCS; principal; 2017-06-29)
DX: A41.9 Sepsis, unspecified organism (principal); J69.0 Pneumonitis due to inhalation of food and vomit; R65.21 Severe sepsis with septic shock; J96.01 Acute respiratory failure with hypoxia; E43 Unspecified severe protein-calorie malnutrition; N17.9 Acute kidney failure, unspecified; K56.609 Unspecified intestinal obstruction, unspecified as to partial versus complete obstruction; K55.9 Vascular disorder of intestine, unspecified; K92.2 Gastrointestinal hemorrhage, unspecified; Z68.1 Body mass index [BMI] 19.9 or less, adult; R19.7 Diarrhea, unspecified; I51.3 Intracardiac thrombosis, not elsewhere classified; R57.1 Hypovolemic shock; M19.90 Unspecified osteoarthritis, unspecified site; N40.0 Benign prostatic hyperplasia without lower urinary tract symptoms
CPT/HCPCS: 36415; 36600; 71045; 74018; 74019; 76770; 80048; 80053; 81003; 82550; 82803; 82962; 83036; 83605; 84443; 84484; 84550; 85007; 85025; 85610; 85730; 86850; 86900; 86901; 86920; 87040; 92950; 93005; 93970; 94002; J3490